=== PATIENT | male | born 1945 | race Caucasian/White ===

== ENCOUNTER 2018-07-17 06:48 | Emergency (ER) | payer OTHER, MEDICAID ==
[~2018-07-17] VITALS: Ht 177.8 cm; Wt 85.3 kg
[2018-07-17 07:38] LABS: EOSINOPHILS # (AUTO) 0.3 K/uL (0.0-0.7); EOSINOPHILS % (AUTO) 5.8 % (0.0-7.0); HEMATOCRIT 41.8 % (36.7-47.1); HEMOGLOBIN 14.2 g/dL (12.5-16.3); LYMPHOCYTES # (AUTO) 0.5 K/uL (20.0-40.0); LYMPHOCYTES % (AUTO) 10.3 % (20.5-51.5); MEAN CORPUSCULAR HEMOGLOBIN 31.2 uug (23.8-33.4); MEAN CORPUSCULAR HGB CONC 34 g/dL (32.5-36.3); MEAN CORPUSCULAR VOLUME 91.6 fL (73.0-96.2); MONOCYTES # (AUTO) 0.6 K/uL (2.0-10.0); MONOCYTES % (AUTO) 12.8 % (0.0-11.0); NEUTROPHILS # (AUTO) 3.4 K/uL (1.8-8.9); NEUTROPHILS % (AUTO) 70.1 % (38.5-71.5); PLATELET COUNT (AUTO) 252 K/uL (152-348); RED BLOOD CELL COUNT(AUTO) 4.56 MIL/uL (4.06-5.63); WHITE BLOOD COUNT (AUTO) 4.8 K/uL (3.6-10.2)
[2018-07-17 07:47] LABS: CARBON DIOXIDE 26 mmol/L (21-32); CHLORIDE 103 mmol/L (98-107); CREATININE 1.2 mg/dL (0.6-1.3); GLUCOSE 108 mg/dL (74-106); POTASSIUM 4.6 mmol/L (3.5-5.1); UREA NITROGEN, BLOOD 24 mg/dL (7-18)
[2018-07-17] MEDS ORDERED: MAG HYDROX/AL HYDROX/SIMETH 30 ML LIQUID UDC PO ONE (08:15)
[2018-07-17] MEDS ORDERED: LIDOCAINE VISCUS 2% 15 ML UDC MM ONE (08:15)
[2018-07-17 08:16] LABS: BILIRUBIN,DIRECT 0.1 mg/dL (0.0-0.2); BILIRUBIN,TOTAL 0.4 mg/dL (0.2-1.0); TOTAL PROTEIN, SERUM 7.7 g/dL (6.4-8.2)
--- NOTE | 2018-07-17 08:19 | NUR ---
Dr Woodson spoke to pt's PMD.
[2018-07-17] MEDS ORDERED: MAG HYDROX/AL HYDROX/SIMETH 30 ML LIQUID UDC ONE (08:23)
[2018-07-17] MEDS ORDERED: LIDOCAINE VISCUS 2% 15 ML UDC ONE (08:24)
[2018-07-17 08:44] VITALS: BP 123/60
--- NOTE | 2018-07-17 08:44 | NUR ---
Patient discharged to home in stable conditon. Written and verbal after care instructions given. Patient verbalizes understanding of instructions.
== END 2018-07-17 08:45 | disposition home or self-care (01) ==
LOC: ER 06:55
DX: M25.512 Pain in left shoulder (principal); R10.13 Epigastric pain; I25.10 Atherosclerotic heart disease of native coronary artery without angina pectoris; I10 Essential (primary) hypertension; Z98.61 Coronary angioplasty status; R11.0 Nausea; R05 Cough; R61 Generalized hyperhidrosis; J45.909 Unspecified asthma, uncomplicated; Z88.1 Allergy status to other antibiotic agents; Z88.8 Allergy status to other drugs, medicaments and biological substances
CPT/HCPCS: 36415; 70030-TC; 71045; 83690; 85025; 85730; 93005; A4663

== ENCOUNTER 2023-09-12 20:00 | Emergency (ER) | payer OTHER, MEDICAID ==
[~2023-09-12] VITALS: Ht 177.8 cm; Wt 89.8 kg
[2023-09-12 23:01] VITALS: BP 122/74; TEMP 97.7; O2SAT 98
== END 2023-09-12 23:02 | disposition home or self-care (01) ==
LOC: ER 20:07
DX: M79.652 Pain in left thigh (principal); J45.909 Unspecified asthma, uncomplicated; Z98.890 Other specified postprocedural states; Z88.1 Allergy status to other antibiotic agents
CPT/HCPCS: 93005; A4606; A4663

== ENCOUNTER 2024-10-12 17:07 | Inpatient (IN) | payer OTHER ==
[~2024-10-12] VITALS: Ht 177.8 cm; Wt 86.2 kg
[2024-10-12] MEDS: IV NS 1000 ML 1,000 ML IV ONE (17:56)
[2024-10-12 17:57] LABS: BASOPHILS % (AUTO) 0.8 % (0.0-2.0); EOSINOPHILS # (AUTO) 0.2 K/uL (0.0-0.7); EOSINOPHILS % (AUTO) 2.7 % (0.0-7.0); HEMATOCRIT 40.7 % (36.7-47.1); HEMOGLOBIN 13.7 g/dL (12.5-16.3); LYMPHOCYTES # (AUTO) 0.7 K/uL (0.8-4.8); LYMPHOCYTES % (AUTO) 12.2 % (20.5-51.5); MEAN CORPUSCULAR HEMOGLOBIN 30.9 uug (23.8-33.4); MEAN CORPUSCULAR HGB CONC 34 g/dL (32.5-36.3); MEAN CORPUSCULAR VOLUME 91.7 fL (73.0-96.2); MONOCYTES # (AUTO) 0.7 K/uL (0.1-1.30); MONOCYTES % (AUTO) 11.2 % (0.0-11.0); NEUTROPHILS # (AUTO) 4.3 K/uL (1.8-8.9); NEUTROPHILS % (AUTO) 73.1 % (38.5-71.5); PLATELET COUNT (AUTO) 277 K/uL (152-348); RED BLOOD CELL COUNT(AUTO) 4.44 MIL/uL (4.06-5.63); RED CELL DISTRIBUTION WIDTH 13.9 % (12.1-16.2); WHITE BLOOD COUNT (AUTO) 5.8 K/uL (3.6-10.2)
[2024-10-12 18:03] LABS: DIFFERENTIAL COMMENT 1
[2024-10-12 18:04] LABS: CALCIUM 8.9 mg/dL (8.5-10.1); CARBON DIOXIDE 27 mmol/L (21-32); CHLORIDE 103 mmol/L (98-107); CREATININE 1.2 mg/dL (0.6-1.3); GLUCOSE 119 mg/dL (74-106); POTASSIUM 4.3 mmol/L (3.5-5.1); SODIUM SERUM 140 mmol/L (136-145); UREA NITROGEN, BLOOD 22 mg/dL (7-18)
[2024-10-12] MEDS ORDERED: IOHEXOL 350 100 ML INFUS..BTL ONE (18:24)
[2024-10-12] MEDS ORDERED: ASPI-866 PO (18:30)
[2024-10-12] MEDS ORDERED: repatha IM (18:30)
[2024-10-12] MEDS ORDERED: FLUT16SP16 NS (18:30)
[2024-10-12] MEDS ORDERED: azelastine (18:30)
[2024-10-12] MEDS ORDERED: LEVO100T10 PO (18:30)
[2024-10-12] MEDS ORDERED: FLUT1DIS28 IH (18:30)
[2024-10-12] MEDS ORDERED: IBUP-1953 PO (18:30)
[2024-10-12] MEDS ORDERED: LORA10CA PO (18:30)
[2024-10-12] MEDS ORDERED: METO-356 PO (18:30)
[2024-10-12] MEDS ORDERED: GEMF600T90 PO (18:30)
[2024-10-12] MEDS ORDERED: LISI-782 PO (18:30)
[2024-10-12] MEDS ORDERED: MONT10TA22 PO (18:30)
[2024-10-12] MEDS: ATORVASTATIN 20 MG TABLET PO STA (20:00)
[2024-10-12] MEDS: CLOPIDOGREL 75 MG TABLET PO ONE (20:00)
[2024-10-12] MEDS ORDERED: ASPIRIN 325 MG TABLET ONE (20:00)
[2024-10-12] MEDS: ASPIRIN 325 MG TABLET PO ONE (20:00)
[2024-10-12] MEDS ORDERED: CLOPIDOGREL 75 MG TABLET ONE (20:00)
[2024-10-12] MEDS ORDERED: ATORVASTATIN 20 MG TABLET ONE (20:00)
[2024-10-12 23:00] VITALS: BP 134/70; TEMP 98.8; O2SAT 98
[2024-10-13 00:03] VITALS: BP 128/70; TEMP 98.8; O2SAT 97
[2024-10-13] MEDS ORDERED: ONDANSETRON 4 MG/2 ML VIAL IV PRN (00:45)
[2024-10-13] MEDS ORDERED: MAGNESIUM HYDROXIDE 30 ML LIQUID UDC PO PRN (00:45)
[2024-10-13] MEDS ORDERED: REMEDY ESSENTIAL ZINC PASTE 113 GM TP PRN (00:45)
[2024-10-13] MEDS: IV NS 1000 ML 1,000 ML IV PRN (00:55)
[2024-10-13 04:15] VITALS: BP 126/58; TEMP 98.1; O2SAT 97
[2024-10-13 05:27] LABS: BASOPHILS % (AUTO) 0.7 % (0.0-2.0); EOSINOPHILS # (AUTO) 0.1 K/uL (0.0-0.7); EOSINOPHILS % (AUTO) 2.8 % (0.0-7.0); HEMATOCRIT 37.6 % (36.7-47.1); HEMOGLOBIN 12.7 g/dL (12.5-16.3); LYMPHOCYTES # (AUTO) 0.7 K/uL (0.8-4.8); MEAN CORPUSCULAR HEMOGLOBIN 30.7 uug (23.8-33.4); MEAN CORPUSCULAR HGB CONC 34 g/dL (32.5-36.3); MEAN CORPUSCULAR VOLUME 90.7 fL (73.0-96.2); MONOCYTES # (AUTO) 0.7 K/uL (0.1-1.30); MONOCYTES % (AUTO) 13.7 % (0.0-11.0); NEUTROPHILS # (AUTO) 3.7 K/uL (1.8-8.9); NEUTROPHILS % (AUTO) 68.8 % (38.5-71.5); PLATELET COUNT (AUTO) 235 K/uL (152-348); RED BLOOD CELL COUNT(AUTO) 4.14 MIL/uL (4.06-5.63); RED CELL DISTRIBUTION WIDTH 13.6 % (12.1-16.2); WHITE BLOOD COUNT (AUTO) 5.3 K/uL (3.6-10.2)
[2024-10-13 05:41] LABS: DIFFERENTIAL COMMENT 1
[2024-10-13 05:59] LABS: ALANINE AMINOTRANSFERASE 21 U/L (16-63); ALBUMIN 3.3 g/dL (3.4-5.0); ALKALINE PHOSPHATASE 39 U/L (50-136); BILIRUBIN,TOTAL 0.4 mg/dL (0.2-1.0); CALCIUM 8.6 mg/dL (8.5-10.1); CARBON DIOXIDE 23 mmol/L (21-32); CHLORIDE 106 mmol/L (98-107); CHOLESTEROL 59 mg/dL (<200); CREATININE 0.9 mg/dL (0.6-1.3); GLUCOSE 107 mg/dL (74-106); HDL CHOLESTEROL 37 mg/dL (40-60); MAGNESIUM 2.1 mg/dL (1.8-2.4); PHOSPHOROUS 3.2 mg/dL (2.5-4.9); POTASSIUM 4.2 mmol/L (3.5-5.1); SODIUM SERUM 139 mmol/L (136-145); TOTAL PROTEIN, SERUM 6.6 g/dL (6.4-8.2); TRIGLYCERIDES 115 MG/DL (30-150); UREA NITROGEN, BLOOD 16 mg/dL (7-18)
[2024-10-13 06:22] LABS: ASPARTATE AMINOTRANSFERASE 14 U/L (15-37)
[2024-10-13] MEDS: PANTOPRAZOLE SODIUM 40 MG TABLET.DR PO SCH (06:23)
[2024-10-13] MEDS: LEVOTHYROXINE SODIUM 100 MCG TABLET PO SCH (06:23)
[2024-10-13 07:52] VITALS: BP 117/61; TEMP 98; O2SAT 99
[2024-10-13] MEDS: ASPIRIN EC 81 MG TABLET.DR PO SCH (08:36)
[2024-10-13] MEDS: LISINOPRIL 5 MG TABLET PO SCH (08:36)
[2024-10-13] MEDS: MONTELUKAST SODIUM 10 MG TABLET PO SCH (08:37)
[2024-10-13] MEDS: CLOPIDOGREL 75 MG TABLET PO SCH (08:37)
[2024-10-13] MEDS: METOPROLOL SUCCINATE XL 25 MG TAB.SR.24H PO SCH (08:37)
[2024-10-13 08:39] LABS: IRON, SERUM 81 ug/dL (50-175)
[2024-10-13] MEDS ORDERED: FLUTICASONE/SALMETEROL 250/50 INHALER IH SCH (09:00)
[2024-10-13] MEDS: FLUTICASONE/VILANTEROL 1 EACH BLST.W.DEV INH SCH (09:15)
[2024-10-13] MEDS: FLUTICASONE PROP NASAL SPRAY 16 GM BOTTLE NS SCH (09:16)
[2024-10-13] MEDS ORDERED: METO25TA6 PO (10:45)
[2024-10-13 11:28] VITALS: BP 125/68; TEMP 98.4; O2SAT 97
[2024-10-13] MEDS: ENSURE WITH FIBER 237 ML LIQUID (CHOCOLATE) PO SCH (15:26)
[2024-10-13 15:50] VITALS: BP 126/51; TEMP 98.1; O2SAT 95
[2024-10-13 18:20] VITALS: BP 118/59; TEMP 98.1; O2SAT 94
[2024-10-13] MEDS: ATORVASTATIN 40 MG TABLET PO SCH (20:52)
[2024-10-13] MEDS: DOCUSATE SODIUM 100 MG CAPSULE PO SCH (20:52)
[2024-10-14 04:37] VITALS: BP 117/61; TEMP 99; O2SAT 95
[2024-10-14 07:04] LABS: BASOPHILS % (AUTO) 0.7 % (0.0-2.0); EOSINOPHILS # (AUTO) 0.1 K/uL (0.0-0.7); EOSINOPHILS % (AUTO) 2.8 % (0.0-7.0); HEMATOCRIT 37.1 % (36.7-47.1); HEMOGLOBIN 12.7 g/dL (12.5-16.3); LYMPHOCYTES # (AUTO) 0.6 K/uL (0.8-4.8); LYMPHOCYTES % (AUTO) 11.2 % (20.5-51.5); MEAN CORPUSCULAR HEMOGLOBIN 30.9 uug (23.8-33.4); MEAN CORPUSCULAR HGB CONC 34 g/dL (32.5-36.3); MEAN CORPUSCULAR VOLUME 90.3 fL (73.0-96.2); MONOCYTES # (AUTO) 0.7 K/uL (0.1-1.30); MONOCYTES % (AUTO) 12.8 % (0.0-11.0); NEUTROPHILS # (AUTO) 3.8 K/uL (1.8-8.9); NEUTROPHILS % (AUTO) 72.5 % (38.5-71.5); PLATELET COUNT (AUTO) 236 K/uL (152-348); RED BLOOD CELL COUNT(AUTO) 4.11 MIL/uL (4.06-5.63); RED CELL DISTRIBUTION WIDTH 13.6 % (12.1-16.2); WHITE BLOOD COUNT (AUTO) 5.3 K/uL (3.6-10.2)
[2024-10-14 07:12] LABS: DIFFERENTIAL COMMENT 1
[2024-10-14 07:18] LABS: CALCIUM 8.8 mg/dL (8.5-10.1); CARBON DIOXIDE 25 mmol/L (21-32); CHLORIDE 105 mmol/L (98-107); CREATININE 1.1 mg/dL (0.6-1.3); GLUCOSE 118 mg/dL (74-106); PHOSPHOROUS 3.1 mg/dL (2.5-4.9); POTASSIUM 4.1 mmol/L (3.5-5.1); SODIUM SERUM 139 mmol/L (136-145); UREA NITROGEN, BLOOD 18 mg/dL (7-18)
[2024-10-14 07:47] VITALS: BP 128/54; TEMP 98.4; O2SAT 98
[2024-10-14 11:06] VITALS: BP 125/62; TEMP 98.2; O2SAT 96
[2024-10-14 15:32] VITALS: BP 149/58; TEMP 98.4; O2SAT 96
[2024-10-14 19:50] VITALS: BP 118/47; TEMP 98.5; O2SAT 93
[2024-10-15] MEDS: ACETAMINOPHEN 325 MG TABLET PO PRN (02:16)
[2024-10-15 05:32] VITALS: BP 132/62; TEMP 97.9; O2SAT 95
[2024-10-15 11:50] VITALS: BP 134/51; TEMP 97.8; O2SAT 97
[2024-10-15 15:53] VITALS: BP 127/75; TEMP 97.7; O2SAT 97
== END 2024-10-15 19:15 | disposition home or self-care (01) | DRG 69 ==
LOC: ER 17:07 → TELE3 22:35 → MEDSURG3 10-14 14:50
PROVIDERS: ADMIT Nurse Practitioner Acute Care
DX: G45.0 Vertebro-basilar artery syndrome (principal); I65.21 Occlusion and stenosis of right carotid artery; R27.0 Ataxia, unspecified; E07.9 Disorder of thyroid, unspecified; E86.0 Dehydration; C14.0 Malignant neoplasm of pharynx, unspecified; Z92.3 Personal history of irradiation; E89.0 Postprocedural hypothyroidism; J45.909 Unspecified asthma, uncomplicated; E11.9 Type 2 diabetes mellitus without complications; I10 Essential (primary) hypertension; I25.10 Atherosclerotic heart disease of native coronary artery without angina pectoris; Z95.5 Presence of coronary angioplasty implant and graft; Z79.899 Other long term (current) drug therapy; Z79.890 Hormone replacement therapy; Z79.82 Long term (current) use of aspirin; Z90.49 Acquired absence of other specified parts of digestive tract
CPT/HCPCS: 36415; 70450; 70496; 83550; 83735; 83921; 84100; 84443; 84484; 85025; 93307; 93880; G0378; J3535; J7040; Q9967

== ENCOUNTER 2025-01-22 18:58 | Inpatient (IN) | payer OTHER, MEDICAID ==
[~2025-01-22] VITALS: Ht 177.8 cm; Wt 89.4 kg
[~2025-01-22 18:58] MED LIST: ASPI-866 PO; FLUT16SP16 NS; FLUT1DIS28 IH; GEMF600T90 PO; IBUP-1953 PO; LEVO100T10 PO; LISI-782 PO; LORA10CA PO; METO-356 PO; MONT10TA22 PO; azelastine; repatha IM
[2025-01-22] MEDS ORDERED: ASPIRIN 81 MG TAB.CHEW PO ONE (19:15)
[2025-01-22] MEDS ORDERED: NITROGLYCERIN OINT 1 GM PACKET TP ONE (19:17)
[2025-01-22] MEDS: NITROGLYCERIN OINT 1 GM PACKET TP ONE (19:19)
[2025-01-22] MEDS ORDERED: METOPROLOL TARTRATE 5 MG/5 ML VIAL IVP ONE (19:30)
[2025-01-22] MEDS: METOPROLOL TARTRATE 5 MG/5 ML VIAL IVP ONE (19:33)
[2025-01-22 19:52] LABS: EOSINOPHILS # (AUTO) 0.5 K/uL (0.0-0.7); EOSINOPHILS % (AUTO) 9.1 % (0.0-7.0); HEMATOCRIT 37.4 % (36.7-47.1); HEMOGLOBIN 12.6 g/dL (12.5-16.3); MEAN CORPUSCULAR HGB CONC 34 g/dL (32.5-36.3); MEAN CORPUSCULAR VOLUME 89.1 fL (73.0-96.2); NEUTROPHILS # (AUTO) 4.9 K/uL (1.8-8.9); NEUTROPHILS % (AUTO) 90.9 % (38.5-71.5); PLATELET COUNT (AUTO) 274 K/uL (152-348); RED BLOOD CELL COUNT(AUTO) 4.19 MIL/uL (4.06-5.63); RED CELL DISTRIBUTION WIDTH 15.4 % (12.1-16.2); WHITE BLOOD COUNT (AUTO) 5.3 K/uL (3.6-10.2)
[2025-01-22 19:53] LABS: DIFFERENTIAL COMMENT 1
[2025-01-22 19:57] LABS: CALCIUM 8.8 mg/dL (8.5-10.1); CARBON DIOXIDE 20 mmol/L (21-32); CHLORIDE 102 mmol/L (98-107); CREATININE 1.3 mg/dL (0.6-1.3); GLUCOSE 254 mg/dL (74-106); POTASSIUM 4.5 mmol/L (3.5-5.1); SODIUM SERUM 135 mmol/L (136-145); UREA NITROGEN, BLOOD 27 mg/dL (7-18)
[2025-01-22 20:10] LABS: ALANINE AMINOTRANSFERASE 23 U/L (16-63); ALBUMIN 3.6 g/dL (3.4-5.0); ALKALINE PHOSPHATASE 43 U/L (50-136); ASPARTATE AMINOTRANSFERASE 18 U/L (15-37); BILIRUBIN,DIRECT 0.2 mg/dL (0.0-0.2); BILIRUBIN,TOTAL 0.4 mg/dL (0.2-1.0); NT-PRO BNP 287 pg/mL (0-125); TOTAL PROTEIN, SERUM 7.3 g/dL (6.4-8.2)
[2025-01-22] MEDS ORDERED: ONDANSETRON 4 MG/2 ML VIAL IV PRN (21:00)
[2025-01-22] MEDS ORDERED: TEMAZEPAM 15 MG CAPSULE PO PRN (21:00)
[2025-01-22] MEDS: BUDESONIDE 0.5 MG/2 ML NEBU NEB SCH (21:30)
[2025-01-22 22:15] VITALS: BP 115/55; TEMP 97.6; O2SAT 94
[2025-01-22] MEDS: ENOXAPARIN SODIUM 80 MG/0.8 ML DISP.SYRIN SQ SCH (23:00)
[2025-01-23] VITALS (7 sets, daily range): BP systolic 109–126; BP diastolic 52–65; TEMP 97.7–98.2; O2SAT 94–98
[2025-01-23] MEDS: ALBUTEROL SULFATE 2.5 MG/ 0.5 ML NEBU NEB SCH (02:01)
[2025-01-23] MEDS: LEVOTHYROXINE SODIUM 100 MCG TABLET PO SCH (06:07)
[2025-01-23] MEDS: PANTOPRAZOLE SODIUM 40 MG TABLET.DR PO SCH (06:08)
[2025-01-23 07:11] LABS: BASOPHILS % (AUTO) 0.2 % (0.0-2.0); HEMATOCRIT 36.5 % (36.7-47.1); HEMOGLOBIN 12.4 g/dL (12.5-16.3); LYMPHOCYTES # (AUTO) 0.2 K/uL (0.8-4.8); LYMPHOCYTES % (AUTO) 2.4 % (20.5-51.5); MEAN CORPUSCULAR HEMOGLOBIN 30.3 uug (23.8-33.4); MEAN CORPUSCULAR HGB CONC 34 g/dL (32.5-36.3); MEAN CORPUSCULAR VOLUME 89.3 fL (73.0-96.2); MONOCYTES # (AUTO) 0.3 K/uL (0.1-1.30); MONOCYTES % (AUTO) 4.2 % (0.0-11.0); NEUTROPHILS # (AUTO) 6.5 K/uL (1.8-8.9); NEUTROPHILS % (AUTO) 93.2 % (38.5-71.5); PLATELET COUNT (AUTO) 282 K/uL (152-348); RED BLOOD CELL COUNT(AUTO) 4.09 MIL/uL (4.06-5.63); RED CELL DISTRIBUTION WIDTH 15.6 % (12.1-16.2); WHITE BLOOD COUNT (AUTO) 6.9 K/uL (3.6-10.2)
[2025-01-23] MEDS ORDERED: BUDESONIDE 0.5 MG/2 ML NEBU NEB SCH (07:30)
[2025-01-23 07:44] LABS: DIFFERENTIAL COMMENT 1
[2025-01-23 07:50] LABS: ALANINE AMINOTRANSFERASE 26 U/L (16-63); ALBUMIN 3.4 g/dL (3.4-5.0); ALKALINE PHOSPHATASE 38 U/L (50-136); ASPARTATE AMINOTRANSFERASE 34 U/L (15-37); BILIRUBIN,TOTAL 0.2 mg/dL (0.2-1.0); CALCIUM 8.3 mg/dL (8.5-10.1); CARBON DIOXIDE 20 mmol/L (21-32); CHLORIDE 103 mmol/L (98-107); CHOLESTEROL 92 mg/dL (<200); CREATININE 1.1 mg/dL (0.6-1.3); GLUCOSE 159 mg/dL (74-106); HDL CHOLESTEROL 41 mg/dL (40-60); MAGNESIUM 2.3 mg/dL (1.8-2.4); PHOSPHOROUS 3.1 mg/dL (2.5-4.9); POTASSIUM 4.6 mmol/L (3.5-5.1); SODIUM SERUM 136 mmol/L (136-145); THYROID STIMULATING HORMONE 0.385 mIU/mL (0.358-3.740); TOTAL PROTEIN, SERUM 6.9 g/dL (6.4-8.2); TRIGLYCERIDES 77 MG/DL (30-150); UREA NITROGEN, BLOOD 27 mg/dL (7-18)
[2025-01-23] MEDS ORDERED: IV NORMAL SALINE 500 ML IV ONE (08:15)
[2025-01-23] MEDS ORDERED: FLUTICASONE PROP NASAL SPRAY 16 GM BOTTLE NS SCH (09:00)
[2025-01-23] MEDS ORDERED: FLUTICASONE/SALMETEROL 250/50 INHALER IH SCH (09:00)
[2025-01-23] MEDS ORDERED: METOPROLOL SUCCINATE XL 25 MG TAB.SR.24H PO SCH (09:00)
[2025-01-23] MEDS ORDERED: ENOXAPARIN SODIUM 80 MG/0.8 ML DISP.SYRIN SQ SCH (09:00)
[2025-01-23] MEDS: FLUTICASONE/VILANTEROL 1 EACH BLST.W.DEV INH SCH (09:46)
[2025-01-23] MEDS: GEMFIBROZIL 600 MG TABLET PO SCH (09:46)
[2025-01-23] MEDS: LISINOPRIL 5 MG TABLET PO SCH (09:46)
[2025-01-23] MEDS: ASPIRIN EC 81 MG TABLET.DR PO SCH (09:47)
[2025-01-23] MEDS: LORATADINE 10 MG TABLET PO SCH (09:47)
[2025-01-23] MEDS ORDERED: EVOL140P3 SQ (10:10)
[2025-01-23] MEDS ORDERED: FLUT1BLS12 IH (10:13)
[2025-01-23] MEDS ORDERED: AZEL137S7 BNOSTRILS (10:13)
[2025-01-23] MEDS ORDERED: METO25TA6 PO (10:16)
[2025-01-23] MEDS: ENOXAPARIN SODIUM 100 MG/ML DISP.SYRIN SQ SCH (11:31)
[2025-01-23] MEDS: ACETAMINOPHEN 325 MG TABLET PO PRN (14:44)
[2025-01-23] MEDS: MONTELUKAST SODIUM 10 MG TABLET PO SCH (17:06)
[2025-01-23] MEDS: FLUTICASONE PROP NASAL SPRAY 16 GM BOTTLE NS SCH (20:13)
[2025-01-23] MEDS: METOPROLOL TARTRATE 25 MG TABLET PO SCH (20:14)
[2025-01-24 00:12] VITALS: BP 112/60; TEMP 98; O2SAT 96
[2025-01-24 04:33] VITALS: BP 117/55; TEMP 97.7; O2SAT 96
[2025-01-24] MEDS: GEMFIBROZIL 600 MG TABLET PO SCH (07:22)
[2025-01-24 07:33] LABS: BASOPHILS % (AUTO) 0.3 % (0.0-2.0); EOSINOPHILS # (AUTO) 0.1 K/uL (0.0-0.7); EOSINOPHILS % (AUTO) 0.7 % (0.0-7.0); HEMATOCRIT 35.9 % (36.7-47.1); HEMOGLOBIN 12.2 g/dL (12.5-16.3); LYMPHOCYTES # (AUTO) 0.7 K/uL (0.8-4.8); LYMPHOCYTES % (AUTO) 7.4 % (20.5-51.5); MEAN CORPUSCULAR HEMOGLOBIN 30.5 uug (23.8-33.4); MEAN CORPUSCULAR HGB CONC 34 g/dL (32.5-36.3); MEAN CORPUSCULAR VOLUME 89.7 fL (73.0-96.2); MONOCYTES # (AUTO) 0.8 K/uL (0.1-1.30); MONOCYTES % (AUTO) 9.1 % (0.0-11.0); NEUTROPHILS # (AUTO) 7.6 K/uL (1.8-8.9); NEUTROPHILS % (AUTO) 82.5 % (38.5-71.5); PLATELET COUNT (AUTO) 281 K/uL (152-348); RED CELL DISTRIBUTION WIDTH 15.4 % (12.1-16.2); WHITE BLOOD COUNT (AUTO) 9.2 K/uL (3.6-10.2)
[2025-01-24 07:38] LABS: CALCIUM 8.6 mg/dL (8.5-10.1); CARBON DIOXIDE 24 mmol/L (21-32); CHLORIDE 100 mmol/L (98-107); CREATININE 1.2 mg/dL (0.6-1.3); DIFFERENTIAL COMMENT 1; GLUCOSE 112 mg/dL (74-106); POTASSIUM 4.6 mmol/L (3.5-5.1); SODIUM SERUM 132 mmol/L (136-145); UREA NITROGEN, BLOOD 34 mg/dL (7-18)
[2025-01-24 07:59] VITALS: BP 116/66; TEMP 98.5; O2SAT 97
[2025-01-24 11:42] VITALS: BP 105/56; TEMP 97.3; O2SAT 95
[2025-01-24 16:54] VITALS: BP 129/60; TEMP 98; O2SAT 95
[2025-01-24 19:50] VITALS: BP 134/62; TEMP 97.7; O2SAT 93
[2025-01-24] MEDS: ATORVASTATIN 40 MG TABLET PO SCH (20:05)
[2025-01-25] VITALS (7 sets, daily range): BP systolic 104–146; BP diastolic 49–56; TEMP 97.8–98.8; O2SAT 93–97
[2025-01-25 07:09] LABS: BASOPHILS % (AUTO) 0.7 % (0.0-2.0); EOSINOPHILS # (AUTO) 0.1 K/uL (0.0-0.7); EOSINOPHILS % (AUTO) 2.2 % (0.0-7.0); HEMATOCRIT 39.3 % (36.7-47.1); HEMOGLOBIN 13.3 g/dL (12.5-16.3); LYMPHOCYTES # (AUTO) 0.9 K/uL (0.8-4.8); LYMPHOCYTES % (AUTO) 15.2 % (20.5-51.5); MEAN CORPUSCULAR HEMOGLOBIN 30.6 uug (23.8-33.4); MEAN CORPUSCULAR HGB CONC 34 g/dL (32.5-36.3); MEAN CORPUSCULAR VOLUME 90.7 fL (73.0-96.2); MONOCYTES # (AUTO) 0.9 K/uL (0.1-1.30); MONOCYTES % (AUTO) 15.4 % (0.0-11.0); NEUTROPHILS # (AUTO) 3.8 K/uL (1.8-8.9); NEUTROPHILS % (AUTO) 66.5 % (38.5-71.5); PLATELET COUNT (AUTO) 239 K/uL (152-348); RED BLOOD CELL COUNT(AUTO) 4.34 MIL/uL (4.06-5.63); RED CELL DISTRIBUTION WIDTH 15.5 % (12.1-16.2); WHITE BLOOD COUNT (AUTO) 5.7 K/uL (3.6-10.2)
[2025-01-25 07:25] LABS: CALCIUM 8.8 mg/dL (8.5-10.1); CARBON DIOXIDE 26 mmol/L (21-32); CHLORIDE 101 mmol/L (98-107); CREATININE 1.3 mg/dL (0.6-1.3); GLUCOSE 100 mg/dL (74-106); POTASSIUM 4.6 mmol/L (3.5-5.1); SODIUM SERUM 135 mmol/L (136-145); UREA NITROGEN, BLOOD 38 mg/dL (7-18)
[2025-01-25 07:47] LABS: DIFFERENTIAL COMMENT 1
[2025-01-25] MEDS: IBUPROFEN 600 MG TABLET PO PRN (08:07)
[2025-01-25 10:06] LABS: EOSINOPHILS % (MANUAL) 3 % (0-8); LYMPHOCYTES % (MANUAL) 15 % (20-40); MONOCYTES % (MANUAL) 15 % (2-10); NEUTROPHILS % (MANUAL) 67 % (42-75)
[2025-01-25 10:07] LABS: ANISOCYTOSIS 1+; PLATELET ESTIMATE ADEQUATE
[2025-01-25 10:13] LABS: *BILIRUBIN,URIN NEGATIVE (NEGATIVE); *BLOOD, URINE NEGATIVE (NEGATIVE); *CLARITY,URINE CLEAR (CLEAR); *COLOR,URINE YELLOW (YELLOW); *KETONES,URINE NEGATIVE (NEGATIVE); *PROTEIN,URINE NEGATIVE (NEGATIVE); *UROBILINOGEN,URINE 0.2 E.U./dl (NORMAL); LEUKOCYTE ESTERASE ,URINE NEGATIVE (NEGATIVE); NITRITE, URINE NEGATIVE (NEGATIVE); PH,URINE 5.5 (5.0-8.0); UGLUCOSE NEGATIVE (NEGATIVE)
[2025-01-25 10:56] LABS: *URINE TOTAL PROTEIN RANDOM 10.1 mg/dL (<150/24HR)
[2025-01-25] MEDS ORDERED: ATOR40TA PO (14:37)
[2025-01-25] MEDS ORDERED: PANT40TA49 PO (14:37)
[2025-01-25] MEDS ORDERED: LORA-114 PO (14:37)
[2025-01-25] MEDS ORDERED: FLUT16SP16 NS (14:37)
[2025-01-25] MEDS ORDERED: FLUT1BLS INH (14:37)
[2025-01-25] MEDS ORDERED: ENOX100D SQ (14:37)
[2025-01-25] MEDS ORDERED: METO25TA6 PO (14:37)
[2025-01-26] VITALS: BP 104/45; TEMP 98.4; O2SAT 97
[2025-01-26 04:00] VITALS: BP 102/57; TEMP 98; O2SAT 95
[2025-01-26 07:16] LABS: BASOPHILS % (AUTO) 0.5 % (0.0-2.0); EOSINOPHILS # (AUTO) 0.1 K/uL (0.0-0.7); EOSINOPHILS % (AUTO) 2.5 % (0.0-7.0); HEMATOCRIT 38.1 % (36.7-47.1); HEMOGLOBIN 13.1 g/dL (12.5-16.3); LYMPHOCYTES # (AUTO) 0.6 K/uL (0.8-4.8); LYMPHOCYTES % (AUTO) 11.8 % (20.5-51.5); MEAN CORPUSCULAR HEMOGLOBIN 30.5 uug (23.8-33.4); MEAN CORPUSCULAR HGB CONC 34 g/dL (32.5-36.3); MEAN CORPUSCULAR VOLUME 88.7 fL (73.0-96.2); MONOCYTES # (AUTO) 0.6 K/uL (0.1-1.30); MONOCYTES % (AUTO) 12.1 % (0.0-11.0); NEUTROPHILS # (AUTO) 3.8 K/uL (1.8-8.9); NEUTROPHILS % (AUTO) 73.1 % (38.5-71.5); PLATELET COUNT (AUTO) 241 K/uL (152-348); RED CELL DISTRIBUTION WIDTH 15.2 % (12.1-16.2); WHITE BLOOD COUNT (AUTO) 5.2 K/uL (3.6-10.2)
[2025-01-26 07:20] LABS: DIFFERENTIAL COMMENT 1
[2025-01-26 07:26] LABS: ALANINE AMINOTRANSFERASE 26 U/L (16-63); ALBUMIN 3.4 g/dL (3.4-5.0); ALKALINE PHOSPHATASE 41 U/L (50-136); ASPARTATE AMINOTRANSFERASE 21 U/L (15-37); BILIRUBIN,TOTAL 0.4 mg/dL (0.2-1.0); CARBON DIOXIDE 24 mmol/L (21-32); CHLORIDE 101 mmol/L (98-107); CREATINE KINASE, TOTAL 60 U/L (39-308); CREATININE 1.3 mg/dL (0.6-1.3); GLUCOSE 110 mg/dL (74-106); PHOSPHOROUS 3.4 mg/dL (2.5-4.9); POTASSIUM 4.1 mmol/L (3.5-5.1); SODIUM SERUM 135 mmol/L (136-145); UREA NITROGEN, BLOOD 36 mg/dL (7-18)
[2025-01-26 07:53] VITALS: BP 116/59; TEMP 98.4; O2SAT 98
[2025-01-26 11:51] VITALS: BP 120/48; TEMP 98.2; O2SAT 97
[2025-01-26 16:26] VITALS: BP 101/50; TEMP 98.2; O2SAT 97
[2025-01-26 20:31] VITALS: BP 104/62; TEMP 98.6; O2SAT 96
[2025-01-27 05:03] VITALS: BP 107/57; TEMP 98.3; O2SAT 95
[2025-01-27 08:00] VITALS: TEMP 98.3
[2025-01-27 12:00] VITALS: TEMP 97.3
[2025-01-27 16:00] VITALS: BP 125/64; TEMP 97.6; O2SAT 96
[2025-01-27 19:00] VITALS: BP 118/54; TEMP 98.1; O2SAT 96
[2025-01-28] VITALS: BP 121/52; TEMP 97.9; O2SAT 96
[2025-01-28 05:00] VITALS: BP 127/58; TEMP 98.5; O2SAT 96
[2025-01-28 07:31] VITALS: BP 91/50; TEMP 98; O2SAT 95
[2025-01-28 09:09] LABS: PTH, INTACT 19 pg/mL (15-65)
[2025-01-28 19:50] VITALS: BP 148/67; TEMP 99.5; O2SAT 96
[2025-01-29 00:15] VITALS: BP 120/61; TEMP 98.6; O2SAT 98
[2025-01-29] MEDS: HYDROCODONE/APAP 5-325MG TABLET PO PRN (02:24)
[2025-01-29 04:58] VITALS: BP 136/68; TEMP 97.8; O2SAT 97
[2025-01-29 07:34] VITALS: BP 118/50; TEMP 97.5; O2SAT 97
[2025-01-29] MEDS ORDERED: TICA90TA PO (11:02)
[2025-01-29] MEDS ORDERED: ATOR40TA PO (11:02)
[2025-01-29] MEDS ORDERED: PANT40TA2 PO (11:04)
[2025-01-29 11:11] VITALS: BP 136/50; TEMP 97.5; O2SAT 98
[2025-01-29] MEDS: TICAGRELOR 90 MG TABLET PO SCH (11:36)
[2025-01-30 14:10] LABS: A/G RATIO 0.9 (0.7-1.7); ALBUMIN 3.1 g/dL (2.9-4.4); ALPHA-1-GLOBULIN 0.3 g/dL (0.0-0.4); ALPHA-2-GLOBULIN 0.9 g/dL (0.4-1.0); BETA GLOBULIN 0.8 g/dL (0.7-1.3); GAMMA GLOBULIN 1.5 g/dL (0.4-1.8); GLOBULIN, TOTAL 3.4 g/dL (2.2-3.9); M-SPIKE 0.8 g/dL (Not Observed); PROTEIN, TOTAL 6.5 g/dL (6.0-8.5)
== END 2025-01-29 15:30 | disposition home or self-care (01) | DRG 322 ==
LOC: ER 19:19 → TELE3 21:22
PROVIDERS: ADMIT Internal Medicine; ATTEND Nurse Practitioner Acute Care
PROC: 027136Z Dilation of Coronary Artery, Two Arteries with Three Drug-eluting Intraluminal Devices, Percutaneous Approach (ICD-10-PCS; principal; 2025-01-28)
PROC: 4A023N7 Measurement of Cardiac Sampling and Pressure, Left Heart, Percutaneous Approach (ICD-10-PCS; 2025-01-28)
PROC: B2061ZZ Plain Radiography of Right and Left Heart using Low Osmolar Contrast (ICD-10-PCS; 2025-01-28)
DX: I21.4 Non-ST elevation (NSTEMI) myocardial infarction (principal); E87.1 Hypo-osmolality and hyponatremia; N17.9 Acute kidney failure, unspecified; I25.10 Atherosclerotic heart disease of native coronary artery without angina pectoris; C14.0 Malignant neoplasm of pharynx, unspecified; Z95.5 Presence of coronary angioplasty implant and graft; R73.03 Prediabetes; J45.909 Unspecified asthma, uncomplicated; E03.9 Hypothyroidism, unspecified; Z92.21 Personal history of antineoplastic chemotherapy; Z92.3 Personal history of irradiation; Z79.899 Other long term (current) drug therapy; Z79.890 Hormone replacement therapy; Z79.82 Long term (current) use of aspirin; Z98.61 Coronary angioplasty status; I10 Essential (primary) hypertension; H91.93 Unspecified hearing loss, bilateral; I25.84 Coronary atherosclerosis due to calcified coronary lesion
CPT/HCPCS: 36415; 71045; 83735; 83970; 84100; 84155; 84165; 84300; 84443; 84484; 85025; 85730; 93005; 93307; 94640; A4663; G0378; J1650; J3490; J3535

== ENCOUNTER 2025-03-06 06:09 | Inpatient (IN) | payer OTHER, MEDICAID ==
[~2025-03-06] VITALS: Ht 177.8 cm; Wt 83.9 kg
[~2025-03-06 06:09] MED LIST changes: +ATOR40TA PO; +AZEL137S7 BNOSTRILS; +EVOL140P3 SQ; +FLUT1BLS INH; +FLUT1BLS12 IH; -FLUT1DIS28 IH; +LORA-114 PO; -METO-356 PO; +METO25TA6 PO; +PANT40TA2 PO; +PANT40TA49 PO; +TICA90TA PO; -azelastine; -repatha IM
[2025-03-06 07:40] LABS: PLATELET COUNT (AUTO) 296 K/uL (152-348); RED BLOOD CELL COUNT(AUTO) 3.28 MIL/uL (4.06-5.63); RED CELL DISTRIBUTION WIDTH 16.3 % (12.1-16.2); WHITE BLOOD COUNT (AUTO) 4.8 K/uL (3.6-10.2)
[2025-03-06 07:49] LABS: CREATININE 1.6 mg/dL (0.6-1.3); SODIUM SERUM 128 mmol/L (136-145); UREA NITROGEN, BLOOD 34 mg/dL (7-18)
[2025-03-06 07:55] LABS: ASPARTATE AMINOTRANSFERASE 23 U/L (15-37); TOTAL PROTEIN, SERUM 7.2 g/dL (6.4-8.2)
[2025-03-06] MEDS: IV NORMAL SALINE 1000 ML BAG IV ONE (08:04)
[2025-03-06 10:03] LABS: *BILIRUBIN,URIN NEGATIVE (NEGATIVE); *BLOOD, URINE NEGATIVE (NEGATIVE); *CLARITY,URINE CLEAR (CLEAR); *COLOR,URINE YELLOW (YELLOW); *KETONES,URINE NEGATIVE (NEGATIVE); *PROTEIN,URINE NEGATIVE (NEGATIVE); *UROBILINOGEN,URINE 0.2 E.U./dl (NORMAL); LEUKOCYTE ESTERASE ,URINE NEGATIVE (NEGATIVE); NITRITE, URINE NEGATIVE (NEGATIVE); UGLUCOSE NEGATIVE (NEGATIVE)
[2025-03-06] MEDS ORDERED: IBUP-1955 PO (10:12)
[2025-03-06] MEDS ORDERED: LORA0.5T48 PO (10:12)
[2025-03-06] MEDS ORDERED: FLUTICASONE/SALMETEROL 250/50 INHALER IH SCH (10:45)
[2025-03-06] MEDS ORDERED: LORAZEPAM 0.5 MG TABLET PO PRN (10:45)
[2025-03-06 11:11] VITALS: BP 139/54; TEMP 97.4; O2SAT 94
[2025-03-06] MEDS ORDERED: BISACODYL 10 MG SUPP.RECT RC PRN (11:30)
[2025-03-06] MEDS: GEMFIBROZIL 600 MG TABLET PO SCH (11:39)
[2025-03-06] MEDS: LORATADINE 10 MG TABLET PO SCH (11:39)
[2025-03-06] MEDS: LISINOPRIL 5 MG TABLET PO SCH (11:39)
[2025-03-06] MEDS: LACTULOSE 20 G/30 ML LIQUID UDC PO ONE (11:43)
[2025-03-06] MEDS: MONTELUKAST SODIUM 10 MG TABLET PO SCH (11:43)
[2025-03-06] MEDS: PANTOPRAZOLE SODIUM 40 MG TABLET.DR PO SCH (11:43)
[2025-03-06] MEDS: IV NS 1000 ML 1,000 ML IV PRN (11:47)
[2025-03-06] MEDS: SORBITOL 70% SOLUTION 30 ML UDC PO ONE (13:04)
[2025-03-06] MEDS: FLUTICASONE PROP NASAL SPRAY 16 GM BOTTLE NS SCH (13:05)
[2025-03-06] MEDS: TICAGRELOR 90 MG TABLET PO SCH (13:05)
[2025-03-06 15:03] VITALS: BP 101/53; TEMP 98.2; O2SAT 98
[2025-03-06 19:00] VITALS: BP 121/53; TEMP 97.6; O2SAT 95
[2025-03-06] MEDS: ASPIRIN EC 81 MG TABLET.DR PO SCH (20:42)
[2025-03-06] MEDS: ONDANSETRON 4 MG/2 ML VIAL IV PRN (20:50)
[2025-03-06] MEDS: ACETAMINOPHEN 325 MG TABLET PO PRN (20:50)
[2025-03-07] VITALS: BP 118/61; TEMP 98.8; O2SAT 95
[2025-03-07 04:00] VITALS: BP 121/55; TEMP 98; O2SAT 98
[2025-03-07] MEDS: LEVOTHYROXINE SODIUM 100 MCG TABLET PO SCH (06:05)
[2025-03-07 07:04] LABS: PLATELET COUNT (AUTO) 250 K/uL (152-348); RED BLOOD CELL COUNT(AUTO) 3.20 MIL/uL (4.06-5.63); RED CELL DISTRIBUTION WIDTH 16.2 % (12.1-16.2); WHITE BLOOD COUNT (AUTO) 4.5 K/uL (3.6-10.2)
[2025-03-07 07:10] LABS: CREATININE 1.2 mg/dL (0.6-1.3); SODIUM SERUM 136 mmol/L (136-145); UREA NITROGEN, BLOOD 19 mg/dL (7-18)
[2025-03-07 08:00] VITALS: BP 130/52; TEMP 98; O2SAT 98
[2025-03-07 08:37] VITALS: BP 130/52
[2025-03-07] MEDS ORDERED: FLUTICASONE/VILANTEROL 1 EACH BLST.W.DEV INH SCH (12:00)
[2025-03-07] MEDS ORDERED: ATORVASTATIN 40 MG TABLET PO SCH (21:00)
== END 2025-03-07 09:15 | disposition home or self-care (01) | DRG 682 ==
LOC: ER 06:33 → TELE3 09:54
PROVIDERS: ADMIT Nurse Practitioner Acute Care; ATTEND Nurse Practitioner Acute Care
DX: N17.0 Acute kidney failure with tubular necrosis (principal); I21.A1 Myocardial infarction type 2; E87.1 Hypo-osmolality and hyponatremia; E86.0 Dehydration; I25.10 Atherosclerotic heart disease of native coronary artery without angina pectoris; R62.7 Adult failure to thrive; C14.0 Malignant neoplasm of pharynx, unspecified; E89.0 Postprocedural hypothyroidism; E78.5 Hyperlipidemia, unspecified; D63.8 Anemia in other chronic diseases classified elsewhere; K59.09 Other constipation; R73.03 Prediabetes; J45.909 Unspecified asthma, uncomplicated; I25.2 Old myocardial infarction; M15.9 Polyosteoarthritis, unspecified; R53.1 Weakness; R70.0 Elevated erythrocyte sedimentation rate; D72.821 Monocytosis (symptomatic); H91.93 Unspecified hearing loss, bilateral; Z79.899 Other long term (current) drug therapy; Z92.21 Personal history of antineoplastic chemotherapy; Z92.3 Personal history of irradiation; Z95.5 Presence of coronary angioplasty implant and graft; Z87.891 Personal history of nicotine dependence; Z79.51 Long term (current) use of inhaled steroids; R79.89 Other specified abnormal findings of blood chemistry; N18.9 Chronic kidney disease, unspecified; I13.10 Hypertensive heart and chronic kidney disease without heart failure, with stage 1 through stage 4 chronic kidney disease, or unspecified chronic kidney disease
CPT/HCPCS: 36415; 71045; 83605; 83735; 84100; 84484; 85025; 85651; 85730; 87040; 87086; A4606; A4663; G0378; J2405; J3535; J7040

== ENCOUNTER 2025-04-10 21:34 | Emergency (ER) | payer OTHER ==
[~2025-04-10] VITALS: Ht 177.8 cm; Wt 77.1 kg
[~2025-04-10 21:34] MED LIST changes: -ATOR40TA PO; -AZEL137S7 BNOSTRILS; -FLUT1BLS INH; -IBUP-1953 PO; +IBUP-1955 PO; +LORA0.5T48 PO; -LORA10CA PO; -METO25TA6 PO; -PANT40TA49 PO
[2025-04-10 21:35] VITALS: BP 135/70
[2025-04-10 22:18] LABS: PLATELET COUNT (AUTO) 229 K/uL (152-348); RED BLOOD CELL COUNT(AUTO) 3.30 MIL/uL (4.06-5.63); RED CELL DISTRIBUTION WIDTH 17.1 % (12.1-16.2); WHITE BLOOD COUNT (AUTO) 6.0 K/uL (3.6-10.2)
[2025-04-10 22:27] LABS: CREATININE 1.2 mg/dL (0.6-1.3); SODIUM SERUM 138 mmol/L (136-145); UREA NITROGEN, BLOOD 21 mg/dL (7-18)
[2025-04-10 22:32] LABS: ASPARTATE AMINOTRANSFERASE 12 U/L (15-37); TOTAL PROTEIN, SERUM 6.6 g/dL (6.4-8.2)
[2025-04-10 23:03] VITALS: BP 128/69; TEMP 98.1; O2SAT 98
== END 2025-04-10 23:02 | disposition home or self-care (01) ==
LOC: ER 21:34
DX: K56.41 Fecal impaction (principal); D64.9 Anemia, unspecified; E03.9 Hypothyroidism, unspecified; E78.5 Hyperlipidemia, unspecified; I13.10 Hypertensive heart and chronic kidney disease without heart failure, with stage 1 through stage 4 chronic kidney disease, or unspecified chronic kidney disease; N18.9 Chronic kidney disease, unspecified; J45.909 Unspecified asthma, uncomplicated; Z79.51 Long term (current) use of inhaled steroids; Z79.82 Long term (current) use of aspirin; Z79.899 Other long term (current) drug therapy; Z88.0 Allergy status to penicillin; Z88.7 Allergy status to serum and vaccine; Z90.49 Acquired absence of other specified parts of digestive tract; Z95.5 Presence of coronary angioplasty implant and graft; Z98.890 Other specified postprocedural states; Z87.438 Personal history of other diseases of male genital organs; Z87.448 Personal history of other diseases of urinary system; Z85.818 Personal history of malignant neoplasm of other sites of lip, oral cavity, and pharynx; Z88.8 Allergy status to other drugs, medicaments and biological substances
CPT/HCPCS: 36415; 83690; 84443; 85025; 85730; A4606; A4663